=== PATIENT | female | born 2000 | race Caucasian/White ===

== ENCOUNTER 2022-01-21 19:50 | Emergency (ER) | payer OTHER, MEDICAID | END 2022-01-21 21:47 | disposition home or self-care (01) | LOC: MW.ED 19:50 | DX: S09.90XA Unspecified injury of head, initial encounter (principal); J45.909 Unspecified asthma, uncomplicated; Z88.8 Allergy status to other drugs, medicaments and biological substances; V89.2XXA Person injured in unspecified motor-vehicle accident, traffic, initial encounter; Y92.410 Unspecified street and highway as the place of occurrence of the external cause | CPT/HCPCS: 70450; 70450-26; 72125; 72125-26; 99283; 99284-25 ==